=== PATIENT | female | born 1970 | race Caucasian/White ===

== ENCOUNTER 2022-05-12 09:20 | Day surgery (SDC) | payer BC ==
[~2022-05-12 09:20] MED LIST: Lactated Ringers 1,000 ML IV SCH; Sodium Chloride 0.9% 10 ML Syringe FLUSH PRN; Sodium Chloride 0.9% 2.5 ML Syringe FLUSH PRN; Sodium Chloride 0.9% 20 ML SDV IV PRN
[2022-05-12] MEDS ORDERED: Propofol 200 MG/20 ML SDV ONE (10:38)
[2022-05-12] MEDS ORDERED: fentaNYL 100 MCG/2 ML SDV ONE (10:38)
[2022-05-12 12:18] VITALS: BP 140/70; PULSE 79
== END 2022-05-12 11:49 | disposition home or self-care (01) ==
LOC: MW.SDS 09:20
PROVIDERS: ATTEND Surgery
DX: Z12.11 Encounter for screening for malignant neoplasm of colon (principal); I10 Essential (primary) hypertension; E66.9 Obesity, unspecified; F32.A Depression, unspecified; G43.909 Migraine, unspecified, not intractable, without status migrainosus; Z88.0 Allergy status to penicillin; Z68.41 Body mass index [BMI] 40.0-44.9, adult; Z79.899 Other long term (current) drug therapy
CPT/HCPCS: 45378; 81025; J2704; J3010; J7120